=== PATIENT | female | born 1965 | race Caucasian/White ===

== ENCOUNTER 2016-12-17 16:25 | Emergency (ER) | payer OTHER ==
[2016-12-17 16:35] VITALS: TEMP 98
--- NOTE | 2016-12-17 17:18 | EDPHY ---
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 She explains the patient is a 89-year-old requires a max assist with transfers and the patient was cleaning to our patient our patient lost her balance but did not fall. However she "wrenched her left knee , " describing abrupt onset of moderate pain has increased to 7/10 pain today. She states that it feels like the knee is going to lock at times to her. She feels like the pain is in the center of the knee. Worsens with walking. No other exacerbating factors are noted. She did try 3 leaves 6 hours prior to arrival without significant improvement. She also reports left lumbar back pain from the same incident that started several minutes after the episode but has worsened to now 7/10 pain equal to the knee left paraspinous lumbar location , nonradiating worse with certain movements with no other exacerbating or alleviating factors. ROS: Constitutional: No fevers. HEENT: No complaints. She did not fall entirely from the episode did not strike her head Musculoskeletal: No midline neck or back pain. No feeling of knee laxity. She did not hear a pop in the knee. Neuro: No numbness or tingling. No focal weakness. No bowel or bladder incontinence. 5 point ROS is otherwise negative Smoking Status: Current every day smoker Physical Exam: Physical Exam Vital signs are normal. General: No acute distress HEENT: Atraumatic. Eyes: Pupils equal and react to light. Extraocular motions are intact. Lungs: No respiratory distress. Back: Patient has left lumbar paraspinous tenderness. Straight leg raise is negative bilaterally. No midline back tenderness. She has mild limitation range of motion for flexion due to pain. Cardiac: Brisk capillary refill is intact throughout. Pulses are 2+ and symmetric in the affected extremity. Extremities: Atraumatic normal except for left knee Left knee: No significant focal tenderness or swelling. Ayah's is negative for laxity or pain. Varus and valgus stress without laxity or pain. With patient in prone position knees flexed to 90 axial loading gentle twisting causes crepitance and some discomfort. Skin: No rash or pallor. Neuro: Alert and oriented x3 with no sensorimotor deficits. Initial differential diagnosis: Knee meniscal injury, pathologic fracture or bony lesion, strain, low back strain, disc herniation without radiculopathy Constitutional: Initial Vital Signs Temperature (C) 36.6 C 12/17/16 16:30 Heart Rate 78 12/17/16 16:30 Respiratory Rate 18 12/17/16 16:30 Blood Pressure 112/99 H 12/17/16 16:30 O2 Sat (%) 95 12/17/16 16:30 O2 Delivery Mode Room Air Allergies/Adverse Reactions: No Known Allergies Allergy (Verified 10/09/11 12:31) Home Medications: Medication Instructions Recorded Methocarbamol [Robaxin 750 mg (*)] 750 - 1,500 mg PO QID PRN #30 tab 12/17/16 Risperdal 12/17/16 Sertraline HCl 12/17/16 traMADol [Ultram 50 mg (*)] 50 - 100 mg PO Q4 PRN #15 tab 12/17/16 MDM/Departure - MDM Imaging Results: Imaging Impressions Knee X-Ray 12/17/16 17:00 Impression: No acute osseous findings. Knee x-ray: Normal by my interpretation Imaging: I viewed and interpreted images myself ED Course/Re-evaluation: Patient is placed in the preemie brace for potential meniscal injury. I counseled regarding meniscal injury in regarding low back strain. Clinically, she does not have evidence of cauda equina syndrome, significant bony abnormality, radiculopathy or other concerning findings. - Depart Disposition: Home, Routine, Self-Care Clinical Impression: Knee injury Qualifiers: Encounter type: initial encounter Laterality: left Qualified Code(s): S89.92XA - Unspecified injury of left lower leg, initial encounter Low back strain Qualifiers: Encounter type: initial encounter Qualified Code(s): S39.012A - Strain of muscle, fascia and tendon of lower back, initial encounter Condition: Good Instructions: Low Back Strain (ED), Meniscus Tear (ED) Additional Instructions: Diagnosis: 1. Knee injury 2. Low back strain Your knee injury may be a meniscal cartilage injury. There is no evidence of bone fracture today or significant ligamentous injury. Plan: Ibuprofen 400-600 mg per 6 hours regularly for the next week then as needed. Methocarbamol muscle relaxants as needed. Tramadol or Tylenol as needed for pain. No driving alcohol or work on tramadol or methocarbamol. Starts daily stretches prior to taking muscle relaxants and tramadol in the morning. 3-5 minutes each of: "Butterfly stretch," "Sphinx stretch", "pigeon stretch", and hamstring stretch. Avoid lifting more than 5-10 pounds until symptoms improve. Follow up with work comp clinic in 2-7 days. Go to the emergency department for worsening of your symptoms despite the treatment plan. Stand Alone Forms: Work Excuse Prescriptions: Methocarbamol [Robaxin 750 mg (*)] 750 - 1,500 mg PO QID PRN #30 tab PRN Reason: Muscle Spasms traMADol [Ultram 50 mg (*)] 50 - 100 mg PO Q4 PRN #15 tab PRN Reason: breakthrough pain Referrals: Bradford Bejarano MD [Primary Care Provider] - As per Instructions
[2016-12-17 18:02] VITALS: BP 114/86; PULSE 98; RESP 16; O2SAT 97
== END 2016-12-17 17:50 | disposition home or self-care (01) ==
LOC: CED 16:25
DX: S39.012A Strain of muscle, fascia and tendon of lower back, initial encounter (principal); S89.92XA Unspecified injury of left lower leg, initial encounter; F17.200 Nicotine dependence, unspecified, uncomplicated; X58.XXXA Exposure to other specified factors, initial encounter; Y99.0 Civilian activity done for income or pay; Y93.89 Activity, other specified
CPT/HCPCS: 73562-PO

== ENCOUNTER → 2016-12-26 | Outpatient (CLI) | payer OTHER | LOC: CIMAGING 11:55 | PROVIDERS: ATTEND Physical Medicine & Rehabilitation | DX: M51.36 Other intervertebral disc degeneration, lumbar region (principal) | CPT/HCPCS: 72114-PO ==

== ENCOUNTER 2016-12-28 11:20 | Emergency (ER) | payer OTHER ==
[2016-12-28 11:32] VITALS: BP 116/78; PULSE 93; RESP 18; TEMP 97.7; O2SAT 95
--- NOTE | 2016-12-28 11:50 | EDPHY ---
HPI/HX/ROS/PE/MDM Narrative: CHIEF COMPLAINT: Back pain HPI: The patient is a 51-year-old female with a history of chronic back pain. She states that she injured her back several weeks ago and has been in significant pain since that time. She is cell the occupational health specialist just prior to this visit this morning who evaluated her and ordered an MRI which will be done shortly. The patient requested pain medicine from the occupational health doctor who declined this request and referred her to the ER. Patient states that she has no new symptoms, but is unable to tolerate the pain and requests additional pain medication. She denies abdominal pain, numbness, weakness or incontinence. She denies fever. REVIEW OF SYSTEMS: Aside from elements discussed in the HPI, a comprehensive 10-point review of systems was reviewed and is negative. PMH: Chronic back pain. SOCIAL HISTORY: Denies alcohol or drug abuse. PHYSICAL EXAM: General:Patient is alert, in no acute distress. She appears more comfortable standing. ENT:Eyes are normal to inspection. ENT inspection normal. Neck: Normal inspection. Full range of motion. Respiratory:No respiratory distress. Breath sounds normal bilaterally. Cardiovascular: Regular rate and rhythm. Strong peripheral pulses. Normal cap refill. Abdomen:The abdomen is nontender to palpation. There are no peritoneal signs. There are normal bowel sounds. Back: Normal to inspection. No midline tenderness to palpation. Tenderness to palpation over the left sciatic notch is present. Skin: Normal color. No rash. Warm and dry. Extremities: Normal appearance. Full range of motion. Neuro: Oriented x3. Normal motor function. Normal sensory function. MDM: This patient is essentially here requesting additional pain control. She tells me that she is fine if she does not receive narcotics, but she needs something to help her with pain. She was very receptive to the idea of treatment with Solu-Medrol Dosepak, lidocaine patches and a small amount of tramadol for breakthrough pain. Patient was very forthright with me and I have low suspicion that she is here for secondary gain. I see no evidence of acute life- threatening process and think the patient would benefit from MRI as an outpatient. We discussed strict return precautions. General Time Seen by Provider: 12/28/16 11:46 Initial Vital Signs: Initial Vital Signs Temperature (C) 36.5 C 12/28/16 11:29 Heart Rate 93 12/28/16 11:29 Respiratory Rate 18 12/28/16 11:29 Blood Pressure 116/78 12/28/16 11:29 O2 Sat (%) 95 12/28/16 11:29 O2 Delivery Mode Room Air Allergies/Adverse Reactions: No Known Allergies Allergy (Verified 12/28/16 11:27) Home Medications: Medication Instructions Recorded Methocarbamol [Robaxin 750 mg (*)] 750 - 1,500 mg PO QID PRN #30 tab 12/17/16 Risperdal 12/17/16 Sertraline HCl 12/17/16 traMADol [Ultram 50 mg (*)] 50 - 100 mg PO Q4 PRN #15 tab 12/17/16 Lidocaine 5% [Lidoderm 5% Patch 1 ea TD DAILY #10 patch 12/28/16 (*)] methylPREDNISolone [Medrol Dose 1 each PO AD #1 ea 12/28/16 Edilberto] traMADol [Ultram 50 mg (*)] 50 - 100 mg PO Q4 #20 tab 12/28/16 Departure - Departure Disposition: Home, Routine, Self-Care Clinical Impression: Sciatica Qualifiers: Laterality: left Qualified Code(s): M54.32 - Sciatica, left side Condition: Good Instructions: Sciatica (ED) Additional Instructions: Follow-up here primary care doctor as well as MRI as scheduled. Return to the emergency department for severe pain, numbness, weakness, incontinence or abdominal pain or fever. Referrals: Bradford Bejarano MD [Primary Care Provider] - As per Instructions Prescriptions: Lidocaine 5% [Lidoderm 5% Patch (*)] 1 ea TD DAILY #10 patch methylPREDNISolone [Medrol Dose Edilberto] 1 each PO AD #1 ea traMADol [Ultram 50 mg (*)] 50 - 100 mg PO Q4 #20 tab
== END 2016-12-28 11:59 | disposition home or self-care (01) ==
LOC: CED 11:20
DX: M54.32 Sciatica, left side (principal)